=== PATIENT | male | born 2005 | race Caucasian/White ===

== ENCOUNTER 2024-12-01 13:45 | Outpatient (RCR) | payer OTHER, SELFPAY | END 2024-12-01 14:43 | disposition home or self-care (01) | PROVIDERS: Visit Provider Family Medicine | DX: M25.551 Pain in right hip (principal); S73.191D Other sprain of right hip, subsequent encounter; M25.851 Other specified joint disorders, right hip; Z51.89 Encounter for other specified aftercare | CPT/HCPCS: 97110; 97140; 97161; 97164 ==